=== PATIENT | male | born 1975 | race Caucasian/White ===

== ENCOUNTER 2016-10-29 17:16 | Emergency (ER) | payer OTHER ==
--- NOTE | 2016-10-29 17:52 | ED ORDER SUMMARY ---
..... Patient: FRANCISCO LUKE OrderSheet [facility] VisitID: [id number] [place] [address] 41y, M Registration Date/Time: 10/29/2016 ORDER SHEET Weight: 86.1 kg (estimated) Allergies: No Known Drug Allergy GENERAL ORDERS: POC Glucose (17:35 10/29/2016 EKoroleva P.A.-C) (17:41 LSullivan R.N.) MEDICATION ORDERS: Motrin PO 800 mg (NOW) (17:43 10/29/2016 EKoroleva P.A.-C) (17:56 LSullivan R.N.) Tylenol PO 650 mg (NOW) (17:43 10/29/2016 EKoroleva P.A.-C) (17:56 LSullivan R.N.) IV FLUIDS: ORDER SHEET NOTES: [Electronically signed by Melissa Marcelo R.N. (18:43 10/29/2016)] [Electronically signed by Maricarmen Camargo P.A.-C (19:17 10/29/2016)] [Electronically locked/signed by Melissa Marcelo R.N. (18:43 10/29/2016)]
--- NOTE | 2016-10-29 17:52 | ED CLINICAL REPORT ---
Clinical Report - Physicians/Mid Levels [facility] [address] [place] [address] 10/29/2016 17:17 [id number] Time Seen: 17:36 Oct 29 2016. Arrived- By private vehicle. Historian- patient. HISTORY OF PRESENT ILLNESS Chief Complaint: Injury to the right and left foot. The injury happened just prior to arrival. Occurred at home. This was not a twisting injury. Patient is experiencing mild pain. Patient denies injury to the head or neck. (patient reports bilateral neuropathy, ongoing for a few years, off his medications for diabetes over the last month.). REVIEW OF SYSTEMS No tingling. He has no pain on weight bearing. All systems otherwise negative, except as recorded above. PAST HISTORY Problems: Herpes Zoster. Diverticulitis. Atypical Chest Pain. Dental Pain. Immunizations. Depression. Diabetes Mellitus. Additional Surgeries: Hemicolonlectomy. Medications: No meds for a month. Allergies: No Known Drug Allergy. ADDITIONAL NOTES The nursing notes have been reviewed. PHYSICAL EXAM Vital Signs: 10/29/2016 17:26 BP: 108/76. HR: 99. RR: 18. O2 saturation: 100%. Temp: 97.6 F. Pain level now: 0/10. Appearance: Alert. No acute distress. Head: Head atraumatic. Eyes: Pupils equal, round and reactive to light. Eyes normal inspection. ENT: Nose normal. Pharynx normal. Neck: Normal inspection. Neck supple. CVS: Normal heart rate and rhythm. Respiratory: No respiratory distress. Breath sounds normal. Abdomen: No visible injury. Soft. No abdominal tenderness. Back: Normal inspection. No tenderness. No soft tissue tenderness. Skin: Skin intact. Skin warm. Skin not cool on palpation. Extremities: No foot injury. No ankle injury. Neuro, Vascular and Tendons: Decreased light touch sensation (to b/l dorsal/ plantar aspects, no erythema). No functional tendon deficit. Neuro: Oriented X 3. No motor deficit. PROGRESS AND PROCEDURES Course of Care: 17:41 10/29/16. Accucheck 144. Patient here in the ER, very stable, with no acute new symptoms. To follow up outpatient. Glucose 144. Patient is stable. Physical exam findings are improved. Symptoms better. Patient/family counseled. Disposition: Discharged. Condition: good. 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 INSTRUCTIONS Apply ice. Elevate affected areas above chest level. You may walk and bear weight as tolerated. ([address] [place] [address] < 1 mi ). OTC Medications: Take OTC medications according to label instructions. Available over the counter. Acetaminophen (available over the counter): take according to label instructions. Motrin (available over the counter): take according to label instructions. Understanding of the discharge instructions verbalized. (Electronically signed by Maricarmen Camargo P.A.-C 10/29/2016 19:17)
--- NOTE | 2016-10-29 17:52 | ED ORDER SUMMARY ---
..... Patient: FRANCISCO LUKE OrderSheet [facility] VisitID: [id number] [place] [address] 41y, M Registration Date/Time: 10/29/2016 ORDER SHEET Weight: 86.1 kg (estimated) Allergies: No Known Drug Allergy GENERAL ORDERS: POC Glucose (17:35 10/29/2016 EKoroleva P.A.-C) (17:41 LSullivan R.N.) MEDICATION ORDERS: Motrin PO 800 mg (NOW) (17:43 10/29/2016 EKoroleva P.A.-C) (17:56 LSullivan R.N.) Tylenol PO 650 mg (NOW) (17:43 10/29/2016 EKoroleva P.A.-C) (17:56 LSullivan R.N.) IV FLUIDS: ORDER SHEET NOTES: [Electronically signed by Melissa Marcelo R.N. (18:43 10/29/2016)] [Electronically signed by Maricarmen Camargo P.A.-C (19:17 10/29/2016)] [Electronically locked/signed by Melissa Marcelo R.N. (18:43 10/29/2016)]
--- NOTE | 2016-10-29 17:52 | ED NURSING NOTES ---
Clinical Report - Nurses [place] [address] [place] [address] 10/29/2016 17:17 Patient: FRANCISCO LUKE TRIAGE Triage time 17:26. Acuity: LEVEL 3. Chief Complaint: RIGHT LOWER EXTREMITY NUMBNESS. Location of symptoms- right foot. Alert. --17:31 Melissa Marcelo R.N. 17:26 10/29/16. BP: 108/76. HR: 99. RR: 18. O2 saturation: 100%. Temp: 97.6 F. Pain level now: 0/10. --17:31 Melissa Marcelo R.N. Weight: 86.1 kg estimated. Height/Length: 70 inches. BMI: 27.2. --17:28 Melissa Marcelo R.N. Medications No meds for a month. --17:27 Melissa Marcelo R.N. Allergies No Known Drug Allergy. --17:31 Melissa Marcelo R.N. History Arrived by private vehicle. Historian: patient. Unaccompanied. Primary physician (none). ( Pt is homeless temporarily). An injury may have occurred. This occurred at an unknown time. PAST MEDICAL HX: Diabetes mellitus. SOCIAL HX: Light tobacco smoker (cigarette)- less than 1/2 a pack per day. History of drug use: methamphetamines. (Pt [facility] [place] [facility] No alcohol use. --17:31 Melissa Marcelo R.N. This occurred (maybe 1 week ago). --17:32 Melissa Marcelo R.N. PROBLEMS: Herpes Zoster. Diverticulitis. Atypical Chest Pain. Dental Pain. Depression. --17:29 Melissa Marcelo R.N. ADDITIONAL SURGERIES: Hemicolonlectomy. --17:29 Melissa Marcelo R.N. Interventions ID band on patient. To room. --17:31 Melissa Marcelo R.N. PHYSICAL ASSESSMENT 17:33 10/29/16. GENERAL / NEURO / PSYCH: ( Foot very dirty, placed in hibiclens soak). --17:33 Melissa Marcelo R.N. NURSING PROGRESS NOTES 17:32 10/29/16. Patient identifiers checked. Call light placed in reach. Bed placed in lowest position. Patient ready for evaluation- chart flagged. --17:32 Melissa Marcelo R.N. 17:41 10/29/16. ( Accucheck 144. Foot soak solution changed, pt c/o it was too cold now.). --17:41 Melissa Marcelo R.N. 17:46 10/29/16. ( Pt given a turkey sandwich, cheese, water. Hibiclens soak dc'd. Towel dried.). --17:46 Melissa Marcelo R.N. 17:51 10/29/2016 Motrin PO 800 mg given. Allergies verified and confirmed 5 rights. --17:56 Melissa Marcelo R.N. 17:51 10/29/2016 Tylenol (Acetaminophen) PO 650 mg given. Confirmed 5 rights. --17:56 Melissa Marcelo R.N. DISPOSITION / DISCHARGE Departure time: 1814. Condition at departure: improved. ( Foot clean, no wounds or injuries found.). Discharge instructions provided and reviewed with the patient. Reviewed medication(s) information. Prescription(s) given to the patient. Reviewed referral to family practice for followup (and ADA). Patient verbalized understanding. ( Pt given clean socks. Old dirty ones discarded.). The patient was discharged home. --18:29 Melissa Marcelo R.N. 18:14 10/29/16. BP: 114/72. HR: 94. RR: 18. O2 saturation: 100%. Pain level now: 0/10. --18:29 Melissa Marcelo R.N. Locked/Released at 10/29/2016 18:43 by Melissa Marcelo R.N.
--- NOTE | 2016-10-29 17:52 | ED NURSING NOTES ---
Clinical Report - Nurses [place] [address] [place] [address] 10/29/2016 17:17 Patient: FRANCISCO LUKE TRIAGE Triage time 17:26. Acuity: LEVEL 3. Chief Complaint: RIGHT LOWER EXTREMITY NUMBNESS. Location of symptoms- right foot. Alert. --17:31 Melissa Marcelo R.N. 17:26 10/29/16. BP: 108/76. HR: 99. RR: 18. O2 saturation: 100%. Temp: 97.6 F. Pain level now: 0/10. --17:31 Melissa Marcelo R.N. Weight: 86.1 kg estimated. Height/Length: 70 inches. BMI: 27.2. --17:28 Melissa Marcelo R.N. Medications No meds for a month. --17:27 Melissa Marcelo R.N. Allergies No Known Drug Allergy. --17:31 Melissa Marcelo R.N. History Arrived by private vehicle. Historian: patient. Unaccompanied. Primary physician (none). ( Pt is homeless temporarily). An injury may have occurred. This occurred at an unknown time. PAST MEDICAL HX: Diabetes mellitus. SOCIAL HX: Light tobacco smoker (cigarette)- less than 1/2 a pack per day. History of drug use: methamphetamines. (Pt states [facility] [place] [facility]). No alcohol use. --17:31 Melissa Marcelo R.N. This occurred (maybe 1 week ago). --17:32 Melissa Marcelo R.N. PROBLEMS: Herpes Zoster. Diverticulitis. Atypical Chest Pain. Dental Pain. Depression. --17:29 Melissa Marcelo R.N. ADDITIONAL SURGERIES: Hemicolonlectomy. --17:29 Melissa Marcelo R.N. Interventions ID band on patient. To room. --17:31 Melissa Marcelo R.N. PHYSICAL ASSESSMENT 17:33 10/29/16. GENERAL / NEURO / PSYCH: ( Foot very dirty, placed in hibiclens soak). --17:33 Melissa Marcelo R.N. NURSING PROGRESS NOTES 17:32 10/29/16. Patient identifiers checked. Call light placed in reach. Bed placed in lowest position. Patient ready for evaluation- chart flagged. --17:32 Melissa Marcelo R.N. 17:41 10/29/16. ( Accucheck 144. Foot soak solution changed, pt c/o it was too cold now.). --17:41 Melissa Marcelo R.N. 17:46 10/29/16. ( Pt given a turkey sandwich, cheese, water. Hibiclens soak dc'd. Towel dried.). --17:46 Melissa Marcelo R.N. 17:51 10/29/2016 Motrin PO 800 mg given. Allergies verified and confirmed 5 rights. --17:56 Melissa Marcelo R.N. 17:51 10/29/2016 Tylenol (Acetaminophen) PO 650 mg given. Confirmed 5 rights. --17:56 Melissa Marcelo R.N. DISPOSITION / DISCHARGE Departure time: 1814. Condition at departure: improved. ( Foot clean, no wounds or injuries found.). Discharge instructions provided and reviewed with the patient. Reviewed medication(s) information. Prescription(s) given to the patient. Reviewed referral to family practice for followup (and ADA). Patient verbalized understanding. ( Pt given clean socks. Old dirty ones discarded.). The patient was discharged home. --18:29 Melissa Marcelo R.N. 18:14 10/29/16. BP: 114/72. HR: 94. RR: 18. O2 saturation: 100%. Pain level now: 0/10. --18:29 Melissa Marcelo R.N. Locked/Released at 10/29/2016 18:43 by Melissa Marcelo R.N.
--- NOTE | 2016-10-29 17:52 | ED CLINICAL REPORT ---
Clinical Report - Physicians/Mid Levels [facility] [address] [place] [address] 10/29/2016 17:17 [id number] Time Seen: 17:36 Oct 29 2016. Arrived- By private vehicle. Historian- patient. HISTORY OF PRESENT ILLNESS Chief Complaint: Injury to the right and left foot. The injury happened just prior to arrival. Occurred at home. This was not a twisting injury. Patient is experiencing mild pain. Patient denies injury to the head or neck. (patient reports bilateral neuropathy, ongoing for a few years, off his medications for diabetes over the last month.). REVIEW OF SYSTEMS No tingling. He has no pain on weight bearing. All systems otherwise negative, except as recorded above. PAST HISTORY Problems: Herpes Zoster. Diverticulitis. Atypical Chest Pain. Dental Pain. Immunizations. Depression. Diabetes Mellitus. Additional Surgeries: Hemicolonlectomy. Medications: No meds for a month. Allergies: No Known Drug Allergy. ADDITIONAL NOTES The nursing notes have been reviewed. PHYSICAL EXAM Vital Signs: 10/29/2016 17:26 BP: 108/76. HR: 99. RR: 18. O2 saturation: 100%. Temp: 97.6 F. Pain level now: 0/10. Appearance: Alert. No acute distress. Head: Head atraumatic. Eyes: Pupils equal, round and reactive to light. Eyes normal inspection. ENT: Nose normal. Pharynx normal. Neck: Normal inspection. Neck supple. CVS: Normal heart rate and rhythm. Respiratory: No respiratory distress. Breath sounds normal. Abdomen: No visible injury. Soft. No abdominal tenderness. Back: Normal inspection. No tenderness. No soft tissue tenderness. Skin: Skin intact. Skin warm. Skin not cool on palpation. Extremities: No foot injury. No ankle injury. Neuro, Vascular and Tendons: Decreased light touch sensation (to b/l dorsal/ plantar aspects, no erythema). No functional tendon deficit. Neuro: Oriented X 3. No motor deficit. PROGRESS AND PROCEDURES Course of Care: 17:41 10/29/16. Accucheck 144. Patient here in the ER, very stable, with no acute new symptoms. To follow up outpatient. Glucose 144. Patient is stable. Physical exam findings are improved. Symptoms better. Patient/family counseled. Disposition: Discharged. Condition: good. 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 INSTRUCTIONS Apply ice. Elevate affected areas above chest level. You may walk and bear weight as tolerated. ([address] [place] [address] < 1 mi ). OTC Medications: Take OTC medications according to label instructions. Available over the counter. Acetaminophen (available over the counter): take according to label instructions. Motrin (available over the counter): take according to label instructions. Understanding of the discharge instructions verbalized. (Electronically signed by Maricarmen Camargo P.A.-C 10/29/2016 19:17)
--- NOTE | 2016-10-29 19:18 | ED MED RECONCILIATION SUMMARY ---
Patient: FRANCISCO LUKE Medication Reconciliation Report [facility] VisitID: [id number] [place] [address] 41y, M Registration Date/Time: 10/29/2016 Weight: 86.1 kg Height/Length: 70 in. BMI: 27.2 ALLERGIES: No Known Drug Allergy The patient's Home Medications are listed below: THE FOLLOWING MEDICATIONS NEED TO BE RECONCILED: No meds for a month The source(s) of the original Home Medication information: Not obtained. The following Medications were given to the patient in the Emergency Department: Motrin [PO] PO 800 mg, administered: 10/29/2016 5:51:00 PM Tylenol [PO] PO 650 mg, administered: 10/29/2016 5:51:00 PM The following Medications were prescribed to the patient: Take OTC medications according to label instructions. Available over the counter. -- Maricarmen Camargo, P.A.-C Acetaminophen (available over the counter): take according to label instructions. -- Maricarmen Camargo, P.A.-C Motrin (available over the counter): take according to label instructions. -- Maricarmen Camargo, P.A.-C
--- NOTE | 2016-10-29 19:18 | ED MAR SUMMARY ---
..... Medication Administration Record [facility] [address] [address] Patient: FRANCISCO LUKE Visit ID: [id number] 41y, M Weight: 86.1 kg Height/Length: 70 in BMI: 27.2 ALLERGIES: No Known Drug Allergy Given 17:10/29/2016 Melissa Marcelo RStacy Medication Administered: MOTRIN [PO], Dose: 800 mg PO. Medication Ordered: Motrin PO 800 mg (NOW). Given 17:10/29/2016 Melissa Marcelo, RAdamNAdam Medication Administered: TYLENOL [PO] (ACETAMINOPHEN), Dose: 650 mg PO. Medication Ordered: Tylenol PO 650 mg (NOW).
--- NOTE | 2016-10-29 19:18 | ED MED RECONCILIATION SUMMARY ---
Patient: FRANCISCO LUKE Medication Reconciliation Report [facility] VisitID: [id number] [place] [address] 41y, M Registration Date/Time: 10/29/2016 Weight: 86.1 kg Height/Length: 70 in. BMI: 27.2 ALLERGIES: No Known Drug Allergy The patient's Home Medications are listed below: THE FOLLOWING MEDICATIONS NEED TO BE RECONCILED: No meds for a month The source(s) of the original Home Medication information: Not obtained. The following Medications were given to the patient in the Emergency Department: Motrin [PO] PO 800 mg, administered: 10/29/2016 5:51:00 PM Tylenol [PO] PO 650 mg, administered: 10/29/2016 5:51:00 PM The following Medications were prescribed to the patient: Take OTC medications according to label instructions. Available over the counter. -- Maricarmen Camargo, P.A.-C Acetaminophen (available over the counter): take according to label instructions. -- Maricarmen Camargo, P.A.-C Motrin (available over the counter): take according to label instructions. -- Maricarmen Camargo, P.A.-C
--- NOTE | 2016-10-29 19:18 | ED DISCHARGE INSTRUCTIONS ---
Patient: FRANCISCO LUKE General Instructions [facility] VisitID: [id number] [address] 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 INSTRUCTIONS Apply ice. Elevate affected areas above chest level. You may walk and bear weight as tolerated. ([address] [place] [address] < 1 mi ). OTC Medications: Take OTC medications according to label instructions. Available over the counter. Acetaminophen (available over the counter): take according to label instructions. Motrin (available over the counter): take according to label instructions. Understanding of the discharge instructions verbalized. ADDITIONAL INFORMATION Diabetes (General Information) Cells of the body need glucose (sugar) for fuel. Insulin is the hormone in the body that lets glucose move from the blood into the cells. Diabetes is a chronic health condition where the body is not able to produce enough insulin, or does not respond well to its own insulin. Because the glucose in the blood cannot get into the cells, it builds up in the blood causing high blood sugar (hyperglycemia). Your actual blood sugar level is a result of the balance between several factors. These include what kind of food you eat and how much of it you eat, how much exercise you get, and the amount of insulin present in your body. Eating too much of the wrong kinds of food or not taking diabetes medicine on time can cause high blood sugar. Infections can cause high blood sugar even if you are taking medicines correctly. Missing meals, not eating enough food, or taking too much diabetes medicine can lead to low blood sugar. Untreated over long periods of time, diabetes can cause serious problems such as heart disease, stroke, kidney failure, blindness, nerve pain or loss of feeling in the legs and feet, and gangrene of the feet. With good treatment keeping your blood sugar under control, you can prevent or delay the complications of diabetes. Normal blood sugar levels are 70-130 one to two hours before a meal and not more than 180 two hours after a meal. Home Care: Follow your prescribed diabetic diet and take insulin or oral diabetic medicine exactly as ordered. Monitor blood sugars as advised. Keep a log of your results. This will help your doctor adjust your medicines to keep your blood sugar under control. Try to achieve your ideal weight. Proper diet and exercise can reduce or eliminate the need to take diabetes medicine. Avoid tobacco smoking, which worsens the effect of diabetes on your circulation. The risk of a heart attack in a diabetic is 15 times more likely if you smoke. Pay attention to good foot care. If you have lost feeling in your feet you may not notice an injury or infection. Check your feet and between your toes at least once a week. Wear a medical alert bracelet or carry a card in your wallet explaining that you are diabetic. In the event that you become very ill and are unable to give this information, it will help medical personnel provide proper care. If you become sick with a cold, the flu, or an infection (viral or bacterial), please do the following: Review your diabetes sick plan and contact your physician as instructed. You may have been advised to call the doctor immediately if: Your blood sugar is above 240 while taking your diabetes medication Your urine ketone levels are above normal or showing high levels of ketones You have been vomiting more than 6 hours You experience difficulty to trouble breathing You develop a high fever or you have had a fever for a couple of days and you aren't getting better You become light-headed and more sleepy than usual Keep taking your oral diabetes medicine (pills) even if you have been vomiting and feeling sick. Contact your doctor immediately for advice because you may need insulin to lower your blood sugar until you recover from your illness. Keep taking your insulin, even if you have been vomiting and feeling sick. Call your doctor immediately and ask if a temporary adjustment of your insulin dose is needed based on your blood glucose (sugar) results. Check your blood sugar every 2 to 4 hours, or at least 4 times a day. Check your keytones often. If you are vomiting and having diarrhea, monitor them more frequently. Don't skip meals. Try to eat small meals on a regular schedule, even if you do not have an appetite. Drink water or other calorie-free, non-caffeinated liquids to stay hydrated. If you are nauseated or vomiting, drink small amounts (sips, a teaspoon) every 5 minutes. To prevent dehydration, try to drink a cup or 8 ounces of fluids every hour while you are awake. Always carry a source of fast-acting sugar with you in case you get symptoms of low blood sugar (below 70). At the first sign of low blood sugar, eat or drink 15 to 20 grams of fast-acting sugar to raise your blood sugar. Examples include: 3 to 4 glucose tablets (found at most drugstores) 4 ounces (1/2 cup) of regular (not diet) softdrinks 4 ounces (1/2 cup) of any fruit juice 8 ounces (1 cup) of milk 5 to 6 pieces of hard candy 1 tablespoon of honey Check your blood sugar 15 minutes after treating yourself. If it is still low (below 70), take another 15 to 20 grams of fast-acting sugar. Test again in 15 minutes. If it returns to normal (70 or above), eat a snack or meal to keep your blood sugar in a safe range. If it remains low, call your doctor or go to an emergency room. Follow Up with your doctor as advised by our staff. For more information, contact the [employer]. www.diabetes.org or 316-613-8328. Get Prompt Medical Attention if any of the following occur: HIGH BLOOD SUGAR: frequent urination, dizziness, drowsiness, thirst, headache, nausea or vomiting, abdominal pain, vision changes, fast breathing, confusion or loss of consciousness LOW BLOOD SUGAR: fatigue, headache, shakes, excess sweating, hunger, feeling anxious or restless, vision changes, drowsiness, weakness, confusion or loss of consciousness Chest pain or shortness of breath Dizziness or fainting Weakness of an arm or leg or one side of the face Trouble with speech or vision You have been given the following additional information: Diabetes, General Info You may walk and bear weight as tolerated. (Electronically signed by Maricarmen Camargo P.A.-C 10/29/2016 19:17)
--- NOTE | 2016-10-29 19:18 | ED MAR SUMMARY ---
..... Medication Administration Record [facility] [address] [place] [address] Patient: FRANCISCO LUKE Visit ID: [id number] 41y, M Weight: 86.1 kg Height/Length: 70 in BMI: 27.2 ALLERGIES: No Known Drug Allergy Given 17:10/29/2016 Melissa Marcelo RStacy Medication Administered: MOTRIN [PO], Dose: 800 mg PO. Medication Ordered: Motrin PO 800 mg (NOW). Given 17:10/29/2016 Melissa Marcelo, RAdamNAdam Medication Administered: TYLENOL [PO] (ACETAMINOPHEN), Dose: 650 mg PO. Medication Ordered: Tylenol PO 650 mg (NOW).
== END 2016-10-29 18:15 | disposition home or self-care (01) ==
LOC: ED SRH 17:16
DX: E11.42 Type 2 diabetes mellitus with diabetic polyneuropathy (principal); G89.29 Other chronic pain; X58.XXXA Exposure to other specified factors, initial encounter; Y93.9 Activity, unspecified; Y92.009 Unspecified place in unspecified non-institutional (private) residence as the place of occurrence of the external cause; Y99.9 Unspecified external cause status; F17.210 Nicotine dependence, cigarettes, uncomplicated; F15.20 Other stimulant dependence, uncomplicated
CPT/HCPCS: 90098

== ENCOUNTER 2016-11-14 01:04 | Emergency (ER) | payer OTHER ==
--- NOTE | 2016-11-14 02:50 | ED CLINICAL REPORT ---
Clinical Report - Physicians/Mid Levels [facility] [address] [place] [address] 11/14/2016 1:05 [id number] Time Seen: 01:15. Arrived- By private vehicle. Historian- patient. HISTORY OF PRESENT ILLNESS Chief Complaint: DENTAL PAIN. cough. This started yesterday and is still present. Pain described as moderate. No sore throat, mouth sores, ear pain or swollen jaw or face. No jaw pain or facial pain. He has had toothache, nasal congestion and a nasal discharge. (Pt c/o pain in his L maxillary 2nd molar. This has been long-standing, but worse since he has been feeling sick. Pt c/o body aches and chills.). Similar symptoms previously: Recent medical care: Not recently seen/assessed. REVIEW OF SYSTEMS No fever, eye discomfort, difficulty breathing, chest pain or nausea. No diarrhea, abdominal pain, difficulty with urination, headache or fainting episodes. No joint pain, skin rash, enlarged lymph nodes or vomiting. The patient has had a cough. All systems otherwise negative, except as recorded above. PAST HISTORY Problems: Lifestyle / Substance Problems. Herpes Zoster. Diverticulitis. Dental Pain. Immunizations. Depression. Diabetes Mellitus. Additional Surgeries: Hemicolonlectomy. Medications: MetFORMIN HCl Oral (pt unsure of dose ). Allergies: No Known Drug Allergy. SOCIAL HISTORY Smoker- current status unknown. 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 No alcohol use. ADDITIONAL NOTES The nursing notes have been reviewed. PHYSICAL EXAM Vital Signs: 11/14/2016 01:16 BP: 102/80. HR: 102. RR: 17. O2 saturation: 100%. Temp: 98.3 F. Pain level now: 610. Have been reviewed. Appearance: Alert. No acute distress. (Pt appears to not feel well.). Head: Normal external inspection. Eyes: Pupils equal, round and reactive to light. Conjunctivae and eyelids normal. ENT: Severe, extensive dental decay. Nose normal. Pharynx normal. Lips normal. Uvula midline. Neck: Normal inspection. Trachea midline. No adenopathy. Thyroid normal. Neck supple. CVS: Normal heart rate and rhythm. Heart sounds normal. Pulses normal. Respiratory: No respiratory distress. Breath sounds normal. Abdomen: Soft and nontender. Skin: Normal skin color. No rash. Normal skin turgor. Extremities: Extremities exhibit normal ROM. Extremities nontender. Neuro: Oriented X 3. No motor deficit. No sensory deficit. LABS, X-RAYS, AND EKG Chest X-ray: No acute disease. Normal lung markings present. Normal heart size. Mediastinum normal. Great vessels normal. Soft tissues normal. No infiltrate. No fracture. No bony lesion present. Views: PA and lateral. Technique: good. The X-rays were independently viewed by me and interpreted contemporaneously by me. Prior films were not available for comparison. Laboratory Tests: Rapid Influenza Screen: (JACKIE: 11/14/2016 02:17) ( MsgRcvd 11/14/2016 02:39) Final results SPECIMEN DESCRIPTION: SWAB Test Result Flag Units (Reference) RAPID INFLUENZA SCREEN CALLED TO: NA -- DATE: 11/14/16 INFLUENZA A: NEGATIVE SCREEN FOR INFLUENZA A INFLUENZA B: NEGATIVE SCREEN FOR INFLUENZA B . Pulse Oximetry: 11/14/2016 01:16 O2 saturation: 100%. (FIO2 - room air). Interpretation: normal. PROGRESS AND PROCEDURES Course of Care: PT was given doses of amoxicillin and hydrocodone for his dental issues and a liter of NS. He was worked up with a CXR and influenza testing, both of which were unremarkable. He has been advised of the importance of dental f/u, and has been given a dental sheet in the ED. Patient counseled in person regarding the patient's stable condition, test results, diagnosis and need for follow-up. Concerns were addressed. Old medical records reviewed. Disposition: Discharged. Condition: stable. CLINICAL IMPRESSION Dental pain. Acute viral syndrome INSTRUCTIONS Drink plenty of fluids. Warnings: Further evaluation is necessary. It is very important to follow up with a physician. SEDATIVE MEDICATION: You were given sedative medication during your visit. Do not drive or operate dangerous machinery for 6 hours. GENERAL WARNINGS: Return or contact your physician immediately if your condition worsens or changes unexpectedly, if not improving as expected, or if other problems arise. Your Current Medications: CONTINUE TAKING THE FOLLOWING MEDICATIONS: MetFORMIN HCl Oral : pt unsure of dose. Prescription Medications: Hydrocodone/APAP 5mg / 325mg: take 1-2 orally every 6 hours as needed for pain. Dispense fifteen (15). No refill. Amoxicillin 500 mg tablets: take 1 orally every 8 hours for 7 days. No refills. Follow-up: Follow up with a dentist. Call for the next available appointment. Understanding of the discharge instructions verbalized by patient. (Electronically signed by Teodora Lawrence MD 11/17/2016 21:27)
--- NOTE | 2016-11-14 02:50 | ED ORDER SUMMARY ---
..... Patient: FRANCISCO LUKE [facility]Sheet [facility] VisitID: [id number] [place] [address] 41y, M Registration Date/Time: 11/14/2016 ORDER SHEET Weight: 89.8 kg (stated) Allergies: No Known Drug Allergy GENERAL ORDERS: Chest 2V Urgent (01:48 11/14/2016 Rusty GERARDO) (Ack 1:51 CHategekimana) (2:23 RFay) Rapid Influenza Screen (Nasal Pharyngeal) (swab) Urgent (01:48 11/14/2016 Rusty GERARDO) (Ack 1:51 Johanaegekimana) (2:18 JQuivey R.N.) MEDICATION ORDERS: Amoxicillin PO 500 mg (NOW) (02:49 11/14/2016 Rusty GERARDO) (Ack 3:02 JQuivey R.N.) (3:10 JQuivey R.N.) Hydrocodone-APAP PO 5/325 mg (NOW, HIGH ALERT MEDICATION) (02:49 11/14/2016 Rusty GERARDO) (Ack 3:02 JQuivey R.N.) (3:10 JQuivey R.N.) IV FLUIDS: IV NS : initial bolus 1000 mL (1000 mL/hr), then none - (NOW) (01:48 11/14/2016 Rusty GERARDO) (Ack 2:06 JQuivey R.N.) (2:19 JQuivey R.N.) ORDER SHEET NOTES: [Electronically signed by Reggie Gracia R.N. (06:29 11/14/2016)] [Electronically signed by Teodora Lawrence MD (21:27 11/17/2016)] [Electronically locked/signed by Reggie Gracia R.N. (06:29 11/14/2016)]
--- NOTE | 2016-11-14 02:50 | ED ORDER SUMMARY ---
..... Patient: FRANCISCO LUKE OrderSheet [facility] VisitID: [id number] [place] [address] 41y, M Registration Date/Time: 11/14/2016 ORDER SHEET Weight: 89.8 kg (stated) Allergies: No Known Drug Allergy GENERAL ORDERS: Chest 2V Urgent (01:48 11/14/2016 Rusty GERRADO) (Ack 1:51 CHategekimana) (2:23 RFay) Rapid Influenza Screen (Nasal Pharyngeal) (swab) Urgent (01:48 11/14/2016 Rusty GERARDO) (Ack 1:51 Johanaegekimana) (2:18 JQuivey R.N.) MEDICATION ORDERS: Amoxicillin PO 500 mg (NOW) (02:49 11/14/2016 Rusty GERARDO) (Ack 3:02 JQuivey R.N.) (3:10 JQuivey R.N.) Hydrocodone-APAP PO 5/325 mg (NOW, HIGH ALERT MEDICATION) (02:49 11/14/2016 Rusty GERARDO) (Ack 3:02 JQuivey R.N.) (3:10 JQuivey R.N.) IV FLUIDS: IV NS : initial bolus 1000 mL (1000 mL/hr), then none - (NOW) (01:48 11/14/2016 Rusty GERARDO) (Ack 2:06 JQuivey R.N.) (2:19 JQuivey R.N.) ORDER SHEET NOTES: [Electronically signed by Reggie Gracia R.N. (06:29 11/14/2016)] [Electronically signed by Teodora Lawrence MD (21:27 11/17/2016)] [Electronically locked/signed by Reggie Gracia R.N. (06:29 11/14/2016)]
--- NOTE | 2016-11-14 02:50 | ED NURSING NOTES ---
Clinical Report - Nurses [facility] [address] [place] [address] 11/14/2016 1:05 Patient: FRANCISCO LUKE TRIAGE Triage time 01:16. Acuity: LEVEL 4. Chief Complaint: LEFT UPPER TOOTHACHE and (Cough). 01:23. Alert. SEPSIS SCREEN: Sepsis Screen. Negative (no infection suspected/documented). --01:23 Reggie Gracia R.N. 01:16 11/14/16. BP: 102/80. HR: 102. RR: 17. O2 saturation: 100%. Temp: 98.3 F (oral). Pain level now: 03/19. --01:23 Reggie Gracia R.N. Acuity: LEVEL 3. 02:20. --02:20 Reggie Gracia R.N. Weight: 89.8 kg stated. Height/Length: 70 inches Per Patient. BMI: 28.4. --01:18 Reggie Gracia R.N. Medications MetFORMIN HCl Oral (pt unsure of dose ). --01:19 Reggie Gracia R.N. Allergies No Known Drug Allergy. --01:19 Reggie Gracia R.N. Medication/allergy information source: the patient (Patient stats he is supposed to be taking insulin). --01:23 Reggie Gracia R.N. History Arrived by private vehicle. Historian: patient. Unaccompanied. Primary physician (None). Onset. (Cough today, dental pain for a week). ( Patient complaining of dental pain and a cough, states his daughters Aunt kicked him out and now he has no place to stay). He has no dental appointment scheduled. 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 PAST MEDICAL HX: Immunizations: up-to-date. SOCIAL HX: Current every day heavy tobacco smoker- 1 pack per day. 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 (Quit using 3 months ago). No alcohol use. No infectious disease exposure. ABUSE ASSESSMENT: No report of abuse. FALL RISK ASSESSMENT: Fall risk assessment completed. No fall risk identified. NUTRITIONAL RISK ASSESSMENT: The nutritional risk assessment revealed no deficiencies. FUNCTIONAL ASSESSMENT: Functional assessment: no impairments noted. LEARNING NEEDS ASSESSMENT: The learning needs assessment revealed no barriers. SKIN INTEGRITY ASSESSMENT: Skin integrity risk assessment completed. No skin integrity risk identified. --01:23 Reggie Gracia R.N. PROBLEMS: Lifestyle / Substance Problems. Herpes Zoster. Diverticulitis. Atypical Chest Pain. Dental Pain. Depression. Diabetes Mellitus. --01:20 Reggie Gracia R.N. ADDITIONAL SURGERIES: Hemicolonlectomy. --01:20 Reggie Gracia R.N. Interventions ID band on patient. To treatment room. --01:23 Reggie Gracia R.N. PHYSICAL ASSESSMENT 01:23. Ambulatory to room. GENERAL / NEURO / PSYCH: Alert. Oriented X 4. HEENT: Voice within normal limits. Extensive dental decay. Mucous membranes are pink. RESPIRATORY: Respirations not labored. SKIN: Skin is warm and dry. Normal skin turgor. --01:23 Reggie Gracia R.N. NURSING PROGRESS NOTES 01:24. Head of bed elevated. Two patient identifiers checked. Call light placed in reach. Bed placed in lowest position. Brakes of bed on. Patient ready for evaluation- chart flagged. --01:24 Reggie Gracia R.N. 01:28. Point of care testing: performed by nurse. Glucose: 249. --01:29 Reggie Gracia R.N. 02:13 11/14/2016 Site #1 started via IV in the right hand with an 20g angiocath, with aseptic technique and good blood return; one attempt. Blood drawn: rainbow set. Labeled in the presence of the patient and sent to the lab. --02:19 Reggie Gracia R.N. 02:14 11/14/2016 Started bag #1 1000 mL IV Fluids IV NS (Saline); at 1000 mL/hr over 1 hour(s) via site #1 --02:19 Reggie Gracia R.N. 02:17. Patient ID band checked for patient name and birthdate: patient confirmed. Flu swab obtained by RN via nasal pharyngeal swab. Labeled in the presence of the patient and sent to lab. --02:19 Reggie Gracia R.N. 02:18. Patient transported to radiology by stretcher with tech. --02:20 Reggie Gracia R.N. 02:26. Patient returned from radiology by stretcher with tech. --02:38 Reggie Gracia R.N. 02:38. Warming measures performed (Additional blankets provided). --02:39 Reggie Gracia R.N. 03:08 11/14/2016 Amoxicillin PO 500 mg given. Allergies verified and confirmed 5 rights. --03:10 Reggie Gracia R.N. 03:08 11/14/2016 Hydrocodone-APAP (Hydrocodone-Acetaminophen) PO 5/325 mg Tablets 1 tab given. Allergies verified, confirmed 5 rights and sedative warning given to the patient. --03:10 Reggie Gracia R.N. 03:20. The patient is calm and resting quietly. GENERAL / NEURO / PSYCH: Alert. Oriented X 4. RESPIRATORY: No respiratory distress. SKIN: Skin is warm and dry. --03:22 Reggie Gracia R.N. DISPOSITION / DISCHARGE 03:06 11/14/2016 IV Fluids IV NS Discontinued: bag #1 infused. Total amount infused: 1000 mL. IV patency established. IV site checked: no pain, redness, or swelling. IV flushed thoroughly. --03:12 Reggie Gracia R.N. 03:14 11/14/2016 Site #1 removed upon discharge. Catheter intact. Bandage applied. --03:14 Reggie Gracia R.N. Departure time: 03:22. Condition at departure: stable. No learning barriers present. Discharge instructions provided and reviewed with the patient. Reviewed medication(s) side effects, precautions, dosing and course information. Prescription(s) given to the patient. Patient verbalized understanding. Written instructions provided in Romanian. The patient was discharged home and unaccompanied at time of discharge. He left the Emergency Department ambulatory. FALL RISK ASSESSMENT: Fall risk assessment completed. No fall risk identified. --03:22 Reggie Gracia R.N. 03:10 11/14/16. BP: 100/63. HR: 97. RR: 16. O2 saturation: 98% on room air. Pain level now: 5/10. --03:22 Reggie Gracia R.N. Locked/Released at 11/14/2016 6:29 by Reggie Gracia R.N.
--- NOTE | 2016-11-14 05:51 | DIAGNOSTIC IMAGING REPORT ---
PROCEDURE: XR CHEST 2 VIEW INDICATION: COUGH TECHNIQUE: PA and lateral views. COMPARISON: None. FINDINGS: Lungs are clear. Heart and mediastinum are normal. There are mild old wedge compression deformities of some of the lower thoracic vertebral bodies with mild accentuation of the thoracic kyphosis. IMPRESSION: 1. Negative chest.
--- NOTE | 2016-11-17 21:28 | ED MAR SUMMARY ---
..... Medication Administration Record [facility] [address] [place] [address] Patient: FRANCISCO LUKE Visit ID: [id number] 41y, M Weight: 89.8 kg Height/Length: 70 in BMI: 28.4 ALLERGIES: No Known Drug Allergy Start 02:14 11/14/2016 Reggie Gracia R.N., Stop 03:06 11/14/2016 Reggie Gracia R.N. Medication Administered: IV NS (SALINE), Dose: IV Fluids over 1 hour(s), Rate: 1000 mL/hr, Dispensed: 1000 mL bag, Site: #1 right hand. Medication Ordered: IV NS : initial bolus 1000 mL (1000 mL/hr), then none - (NOW). Given 03:08 11/14/2016 Reggie Garcia R.N. Medication Administered: AMOXICILLIN [PO], Dose: 500 mg PO. Medication Ordered: Amoxicillin PO 500 mg (NOW). Given 03:08 11/14/2016 Reggie Gracia R.N. Medication Administered: HYDROCODONE-APAP [PO] (HYDROCODONE-ACETAMINOPHEN), Dose: 1 tab 5/325 mg Tablets PO. Medication Ordered: Hydrocodone-APAP PO 5/325 mg (NOW, HIGH ALERT MEDICATION).
--- NOTE | 2016-11-17 21:28 | ED DISCHARGE INSTRUCTIONS ---
Patient: FRANCISCO LUKE General Instructions [facility] VisitID: [id number] [place] [address] 41y, M Registration Date/Time: 11/14/2016 Dental pain. Acute viral syndrome INSTRUCTIONS Drink plenty of fluids. Warnings: Further evaluation is necessary. It is very important to follow up with a physician. SEDATIVE MEDICATION: You were given sedative medication during your visit. Do not drive or operate dangerous machinery for 6 hours. GENERAL WARNINGS: Return or contact your physician immediately if your condition worsens or changes unexpectedly, if not improving as expected, or if other problems arise. Your Current Medications: CONTINUE TAKING THE FOLLOWING MEDICATIONS: MetFORMIN HCl Oral : pt unsure of dose. Prescription Medications: Hydrocodone/APAP 5mg / 325mg: take 1-2 orally every 6 hours as needed for pain. Dispense fifteen (15). No refill. Amoxicillin 500 mg tablets: take 1 orally every 8 hours for 7 days. No refills. Follow-up: Follow up with a dentist. Call for the next available appointment. Understanding of the discharge instructions verbalized by patient. ADDITIONAL INFORMATION Dental Pain A crack or cavity in the tooth, which exposes the sensitive inner area of the tooth can cause tooth pain. An infection in the gum or the root of the tooth can cause pain and swelling. The pain is often made worse by drinking hot or cold fluids, or biting on hard foods. Pain may spread from the tooth to the ear or jaw on the same side. Home Care: Avoid hot and cold foods and liquids since your tooth may be sensitive to temperature changes. If your tooth is chipped or cracked, or if there is a large open cavity, apply OIL OF CLOVES (available ykuj-brj-mfqydvt in drug stores) directly to the tooth to reduce pain. Some pharmacies carry an jbnl-wqa-yhrotfr "toothache kit." This contains a paste, which can be applied over the exposed tooth to decrease sensitivity. A cold pack on your jaw over the sore area may help reduce pain. You may use acetaminophen (Tylenol) or ibuprofen (Motrin, Advil) to control pain, unless another medicine was prescribed. [ NOTE: If you have chronic liver or kidney disease or ever had a stomach ulcer or GI bleeding, talk with your doctor before using these medicines.] If you have signs of an infection, an antibiotic will be given. Take it as directed. Follow-Up as directed with a dentist. Your pain may go away with the treatment given. However, only a dentist can fully evaluate and treat the cause and prevent the pain from coming back again. TOOTHACHE IS A SIGN OF DISEASE IN YOUR TOOTH AND SHOULD BE EXAMINED AND TREATED BY A DENTIST. Get Prompt Medical Attention if any of the following occur: Your face becomes swollen or red Pain worsens or spreads to the neck Fever over 100.4 F (38.0 C) Unusual drowsiness; headache or stiff neck; weakness or fainting Pus drains from the tooth Difficulty swallowing or breathing Viral Syndrome (Adult) A viral illness may cause a number of symptoms. The symptoms depend on the part of the body that the virus affects. If it settles in the nose, throat, and lungs, it may cause cough, sore throat, congestion, and sometimes headache. If it settles in the stomach and intestinal tract, it may cause vomiting and diarrhea. Sometimes it causes vague symptoms like "aching all over," feeling tired, loss of appetite, or fever. A viral illness usually lasts1 to 2 weeks, but sometimes it lasts longer. In some cases, a more serious infection can look like a viral syndrome in the first few days of the illness. You may need anotherexam and additional teststo know the difference.Watch for the warning signs listed below. Home care Follow these guidelines for taking care of yourself at home: If symptoms are severe, rest at home for the first 2 to 3 days. Stay away from cigarette smoke - both your smoke and the smoke from others. You may useacetaminophen or ibuprofen for fever, muscle aching, and headache, unless another medicine was prescribed for this.If you have chronic liver or kidney disease or ever had a stomach ulcer or GI bleeding, talk with your doctor before using these medicinesNo one who is younger than 18 and ill with a fever should take aspirin. It may cause severe liver damage. Your appetite may be poor, so a light diet is fine. Avoid dehydration by drinking 8 to 12 8-ounce glasses of fluids each day. This may include water; orange juice; lemonade; apple, grape, and cranberry juice; clear fruit drinks; electrolyte replacement and sports drinks; and decaffeinated teas and coffee. If you have been diagnosed with a kidney disease, ask your doctor how much and what types of fluids you should drink to prevent dehydration. If you have kidney disease, drinking too much fluid can cause it build up in the your body and be dangerous to your health. Gatd-lru-sopllqm remedies won't shorten the length of the illness but may be helpful forcough, sore throat; and nasal and sinus congestion. Don't use decongestants if you have high blood pressure. Follow-up care Follow up with your health care provider if you do not improve over the next week. When to seek medical care Get prompt medical attention if any of these occur: Cough with lots of colored sputum (mucus) or blood in your sputum Chest pain, shortness of breath, wheezing, or difficulty breathing Severe headache; face, neck, or ear pain Severe, constant pain in the lower right side of your belly (abdominal) Continued vomiting (cant keep liquids down) Frequent diarrhea (more than 5 times a day); blood (red or black color) or mucus in diarrhea Feeling weak, dizzy, or like you are going to faint Extreme thirst Fever of 100.4 F (38 C) oral or higher, not better with fever medication Convulsion You have been given the following additional information: Dental Pain Viral Syndrome (Adult) (Electronically signed by Teodora Lawrence MD 11/17/2016 21:27)
--- NOTE | 2016-11-17 21:28 | ED MED RECONCILIATION SUMMARY ---
Patient: FRANCISCO LUKE Medication Reconciliation Report [facility] VisitID: [id number] [place] [address] 41y, M Registration Date/Time: 11/14/2016 Weight: 89.8 kg Height/Length: 70 in. BMI: 28.4 ALLERGIES: No Known Drug Allergy The patient's Home Medications are listed below: CONTINUE TAKING THE FOLLOWING MEDICATIONS: MetFORMIN HCl Oral, pt unsure of dose The source(s) of the original Home Medication information: patient Patient stats he is supposed to be taking insulin The following Medications were given to the patient in the Emergency Department: IV NS IV Fluids bolus 0, then 1000 mL/hr, administered: 11/14/2016 2:14:00 AM Amoxicillin [PO] PO 500 mg, administered: 11/14/2016 3:08:00 AM Hydrocodone-APAP [PO] PO 1 tab, administered: 11/14/2016 3:08:00 AM The following Medications were prescribed to the patient: Hydrocodone/APAP 5mg / 325mg: take 1-2 orally every 6 hours as needed for pain. Dispense fifteen (15). No refill. -- Teodora Lawrence MD Amoxicillin 500 mg tablets: take 1 orally every 8 hours for 7 days. No refills. -- Teodora Lawrence MD
--- NOTE | 2016-11-17 21:28 | ED MAR SUMMARY ---
..... Medication Administration Record [facility] [address] [place] [address] Patient: FRANCISCO LUKE Visit ID: [id number] 41y, M Weight: 89.8 kg Height/Length: 70 in BMI: 28.4 ALLERGIES: No Known Drug Allergy Start 02:14 11/14/2016 Reggie Gracia R.N., Stop 03:06 11/14/2016 Reggie Gracia R.N. Medication Administered: IV NS (SALINE), Dose: IV Fluids over 1 hour(s), Rate: 1000 mL/hr, Dispensed: 1000 mL bag, Site: #1 right hand. Medication Ordered: IV NS : initial bolus 1000 mL (1000 mL/hr), then none - (NOW). Given 03:08 11/14/2016 Reggie Gracia R.N. Medication Administered: AMOXICILLIN [PO], Dose: 500 mg PO. Medication Ordered: Amoxicillin PO 500 mg (NOW). Given 03:08 11/14/2016 Reggie Gracia R.N. Medication Administered: HYDROCODONE-APAP [PO] (HYDROCODONE-ACETAMINOPHEN), Dose: 1 tab 5/325 mg Tablets PO. Medication Ordered: Hydrocodone-APAP PO 5/325 mg (NOW, HIGH ALERT MEDICATION).
--- NOTE | 2016-11-17 21:28 | ED MED RECONCILIATION SUMMARY ---
Patient: FRANCISCO LUKE Medication Reconciliation Report [facility] VisitID: [id number] [place] [address] 41y, M Registration Date/Time: 11/14/2016 Weight: 89.8 kg Height/Length: 70 in. BMI: 28.4 ALLERGIES: No Known Drug Allergy The patient's Home Medications are listed below: CONTINUE TAKING THE FOLLOWING MEDICATIONS: MetFORMIN HCl Oral, pt unsure of dose The source(s) of the original Home Medication information: patient Patient stats he is supposed to be taking insulin The following Medications were given to the patient in the Emergency Department: IV NS IV Fluids bolus 0, then 1000 mL/hr, administered: 11/14/2016 2:14:00 AM Amoxicillin [PO] PO 500 mg, administered: 11/14/2016 3:08:00 AM Hydrocodone-APAP [PO] PO 1 tab, administered: 11/14/2016 3:08:00 AM The following Medications were prescribed to the patient: Hydrocodone/APAP 5mg / 325mg: take 1-2 orally every 6 hours as needed for pain. Dispense fifteen (15). No refill. -- Teodora Lawrence MD Amoxicillin 500 mg tablets: take 1 orally every 8 hours for 7 days. No refills. -- Teodora Lawrence MD
== END 2016-11-14 03:22 | disposition home or self-care (01) ==
LOC: ED SRH 01:04
DX: K08.89 Other specified disorders of teeth and supporting structures (principal); B34.9 Viral infection, unspecified; E11.9 Type 2 diabetes mellitus without complications; Z79.84 Long term (current) use of oral hypoglycemic drugs
CPT/HCPCS: 91400

== ENCOUNTER 2016-12-10 21:38 | Emergency (ER) | payer OTHER ==
--- NOTE | 2016-12-10 23:44 | ED NURSING NOTES ---
Clinical Report - Nurses [facility] [address] [place] [address] 12/10/2016 21:38 Patient: FRANCISCO LUKE TRIAGE Acuity: LEVEL 3. Chief Complaint: RIGHT LOWER EXTREMITY PAIN and REDNESS. Alert. No acute distress. SEPSIS SCREEN: Sepsis Screen. Negative (no infection suspected/documented). SARAVANAN COMA SCORE: Saravanan Coma Scale: 15- eyes open spontaneously (4); best verbal response- oriented x 4 (5); best motor response- obeys commands (6). --21:44 Alma Rhodes R.N. 21:39 12/10/16. BP: 110/69. HR: 99. RR: 20. O2 saturation: 95% on room air. Temp: 97.8 F (oral). Pain level now: 8/10. --21:44 Alma Rhodes R.N. Weight: 86.1 kg stated. Height/Length: 70 inches Per Patient. BMI: 27.2. --21:42 Alma Rhoeds R.N. Medications GlipiZIDE-MetFORMIN HCl Oral (Tablet 5-500 mg) 1 tablet, 2 x day. --21:51 Alma Rhodes R.N. The following entry was struck by Alma Rhodes R.N., 21:51 (12/10/16) Reason - other. <<STRICKEN ENTRY-- MetFORMIN HCl Oral (pt unsure of dose ). --21:40 Alma Rhodes R.N. --END STRIKE>>. Medication/allergy information source: the patient. --21:44 Alma Rhodes R.N. Allergies No Known Drug Allergy. --21:40 Alma Rhodes R.N. History Arrived by EMS. Historian: patient. This occurred (1 months ago). ( EMS reports they picked up pt at the [facility] where pt states he is staying because he is homeless.). 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 SOCIAL HX: Current every day light tobacco smoker- less than 1/2 a pack per day. 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 (PT STATES HE HAS NOT USED METH FOR 2 MONTHS). No alcohol use. FALL RISK ASSESSMENT: Fall risk assessment completed. No fall risk identified. NUTRITIONAL RISK ASSESSMENT: The nutritional risk assessment revealed no deficiencies. FUNCTIONAL ASSESSMENT: Functional assessment: no impairments noted. LEARNING NEEDS ASSESSMENT: The learning needs assessment revealed no barriers. SKIN INTEGRITY ASSESSMENT: Skin integrity risk assessment completed. No skin integrity risk identified. --21:44 Alma Rhodes R.N. PROBLEMS: Viral Disease. Lifestyle / Substance Problems. Herpes Zoster. Diverticulitis. Atypical Chest Pain. Dental Pain. Immunizations. Depression. Diabetes Mellitus. --21:41 Alma Rhodes R.N. ADDITIONAL SURGERIES: Hemicolectomy. --21:50 Alma Rhodes R.N. The following entry was struck by Alma Rhodes R.N., 21:50 Reason - other <<STRICKEN ENTRY-- Hemicolonlectomy. --19:33 Alma Rhodes R.N. --END STRIKE>>. Assessment GENERAL / NEURO / PSYCH: Alert. Oriented X 4. Appears in no acute distress. Patient appears calm and cooperative. RESPIRATORY: Respirations not labored. CVS: Capillary refill less than 2 seconds. GI / : Abdomen soft and nontender. SKIN: Mucous membranes are pink. Skin is warm and dry. --21:44 Alma Rhodes R.N. Interventions ID band on patient. To treatment room. --21:44 Alma Rhodes R.N. PHYSICAL ASSESSMENT 21:44 12/10/16. To room via stretcher. GENERAL / NEURO / PSYCH: Oriented X 4. Alert. Appears in no acute distress. EXTREMITIES: Extremity pulses are within normal limits. Neuro-vascular status intact to the extremity. SKIN: Skin intact. Skin is warm and dry. --21:44 Alma Rhodes R.N. NURSING PROGRESS NOTES 21:45 12/10/16. Patient gowned. Two patient identifiers checked. Call light placed in reach. Side rails up x 1. Bed placed in lowest position. Brakes of bed on. Patient ready for evaluation- chart flagged. --21:45 Alma Rhodes R.N. 22:24 12/10/2016 Ciprofloxacin (Ciprofloxacin) PO 500 mg given. Allergies verified and confirmed 5 rights. --22:34 Alma Rhodes R.N. 22:25 12/10/2016 Clindamycin PO 300 mg given. Allergies verified and confirmed 5 rights. --22:35 Alma Rhodes R.N. 22:30 12/10/2016 Site #1 started via IV in the left forearm with an 20g angiocath, with aseptic technique and good blood return; one attempt. Blood drawn: rainbow set. Labeled in the presence of the patient and sent to the lab. Saline lock flushed with 10 mL saline. --22:35 Alma Rhodes R.N. 22:38 12/10/2016 Bupivacaine Injection 0.5 % given. Allergies verified and confirmed 5 rights. (given to PA). --22:38 Alma Rhodes R.N. 23:00 12/10/16. Care transferred and report given (Lety, ED RN). --23:00 Alma Rhodes R.N. DISPOSITION / DISCHARGE 00:05 12/11/2016 Site #1 removed upon discharge. Bandage applied. --00:05 Kasi Grant Condition at departure: stable. Discharge instructions provided and reviewed with the patient. Reviewed medication(s). Treatments reviewed. Activity restrictions reviewed. The patient was discharged by the physician esl instructional assistant. He was discharged home. He left the Emergency Department on crutches and via bus and with fare provided. FALL RISK ASSESSMENT: Fall risk assessment completed. No fall risk identified. --00:07 Kasi Grant 00:05 12/11/16. BP: 136/74. HR: 78. RR: 18. O2 saturation: 100%. Pain level now: 11/19. --00:07 Kasi Grant Departure time: :07. --00:10 Kasi Grant Locked/Released at 12/11/2016 4:55 by Reggie Gracia R.N.
--- NOTE | 2016-12-10 23:44 | ED NURSING NOTES ---
Clinical Report - Nurses [place] [facility] [address] [place] [address] 12/10/2016 21:38 Patient: FRANCISCO LUKE TRIAGE Acuity: LEVEL 3. Chief Complaint: RIGHT LOWER EXTREMITY PAIN and REDNESS. Alert. No acute distress. SEPSIS SCREEN: Sepsis Screen. Negative (no infection suspected/documented). SARAVANAN COMA SCORE: Saravanan Coma Scale: 15- eyes open spontaneously (4); best verbal response- oriented x 4 (5); best motor response- obeys commands (6). --21:44 Alma Rhodes R.N. 21:39 12/10/16. BP: 110/69. HR: 99. RR: 20. O2 saturation: 95% on room air. Temp: 97.8 F (oral). Pain level now: 8/10. --21:44 Alma Rhodes R.N. Weight: 86.1 kg stated. Height/Length: 70 inches Per Patient. BMI: 27.2. --21:42 Alma Rhodes R.N. Medications GlipiZIDE-MetFORMIN HCl Oral (Tablet 5-500 mg) 1 tablet, 2 x day. --21:51 Alma Rhodes R.N. The following entry was struck by Alma Rhodes R.N., 21:51 (12/10/16) Reason - other. <<STRICKEN ENTRY-- MetFORMIN HCl Oral (pt unsure of dose ). --21:40 Alma Rhodes R.N. --END STRIKE>>. Medication/allergy information source: the patient. --21:44 Alma Rhodes R.N. Allergies No Known Drug Allergy. --21:40 Alma Rhodes R.N. History Arrived by EMS. Historian: patient. This occurred (1 months ago). ( EMS reports they picked up pt at the [facility] where pt states he is staying because he is homeless.). 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 SOCIAL HX: Current every day light tobacco smoker- less than 1/2 a pack per day. 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 (PT STATES HE HAS NOT USED METH FOR 2 MONTHS). No alcohol use. FALL RISK ASSESSMENT: Fall risk assessment completed. No fall risk identified. NUTRITIONAL RISK ASSESSMENT: The nutritional risk assessment revealed no deficiencies. FUNCTIONAL ASSESSMENT: Functional assessment: no impairments noted. LEARNING NEEDS ASSESSMENT: The learning needs assessment revealed no barriers. SKIN INTEGRITY ASSESSMENT: Skin integrity risk assessment completed. No skin integrity risk identified. --21:44 Alma Rhodes R.N. PROBLEMS: Viral Disease. Lifestyle / Substance Problems. Herpes Zoster. Diverticulitis. Atypical Chest Pain. Dental Pain. Immunizations. Depression. Diabetes Mellitus. --21:41 Alma Rhodes R.N. ADDITIONAL SURGERIES: Hemicolectomy. --21:50 Alma Rhodes R.N. The following entry was struck by Alma Rhodes R.N., 21:50 Reason - other <<STRICKEN ENTRY-- Hemicolonlectomy. --19:33 Alma Rhodes R.N. --END STRIKE>>. Assessment GENERAL / NEURO / PSYCH: Alert. Oriented X 4. Appears in no acute distress. Patient appears calm and cooperative. RESPIRATORY: Respirations not labored. CVS: Capillary refill less than 2 seconds. GI / : Abdomen soft and nontender. SKIN: Mucous membranes are pink. Skin is warm and dry. --21:44 Alma Rhodes R.N. Interventions ID band on patient. To treatment room. --21:44 Alma Rhodes R.N. PHYSICAL ASSESSMENT 21:44 12/10/16. To room via stretcher. GENERAL / NEURO / PSYCH: Oriented X 4. Alert. Appears in no acute distress. EXTREMITIES: Extremity pulses are within normal limits. Neuro-vascular status intact to the extremity. SKIN: Skin intact. Skin is warm and dry. --21:44 Alma Rhodes R.N. NURSING PROGRESS NOTES 21:45 12/10/16. Patient gowned. Two patient identifiers checked. Call light placed in reach. Side rails up x 1. Bed placed in lowest position. Brakes of bed on. Patient ready for evaluation- chart flagged. --21:45 Alma Rhodes R.N. 22:24 12/10/2016 Ciprofloxacin (Ciprofloxacin) PO 500 mg given. Allergies verified and confirmed 5 rights. --22:34 Alma Rhodes R.N. 22:25 12/10/2016 Clindamycin PO 300 mg given. Allergies verified and confirmed 5 rights. --22:35 Alma Rhodes R.N. 22:30 12/10/2016 Site #1 started via IV in the left forearm with an 20g angiocath, with aseptic technique and good blood return; one attempt. Blood drawn: rainbow set. Labeled in the presence of the patient and sent to the lab. Saline lock flushed with 10 mL saline. --22:35 Alma Rhodes R.N. 22:38 12/10/2016 Bupivacaine Injection 0.5 % given. Allergies verified and confirmed 5 rights. (given to PA). --22:38 Alma Rhodes R.N. 23:00 12/10/16. Care transferred and report given (Lety, ED RN). --23:00 Alma Rhodes R.N. DISPOSITION / DISCHARGE 00:05 12/11/2016 Site #1 removed upon discharge. Bandage applied. --00:05 Kasi Grant Condition at departure: stable. Discharge instructions provided and reviewed with the patient. Reviewed medication(s). Treatments reviewed. Activity restrictions reviewed. The patient was discharged by the physician technical support assistant. He was discharged home. He left the Emergency Department on crutches and via bus and with fare provided. FALL RISK ASSESSMENT: Fall risk assessment completed. No fall risk identified. --00:07 Kasi Grant 00:05 12/11/16. BP: 136/74. HR: 78. RR: 18. O2 saturation: 100%. Pain level now: 11/19. --00:07 Kasi Grant Departure time: :07. --00:10 Kasi Grant Locked/Released at 12/11/2016 4:55 by Reggie Gracia R.N.
--- NOTE | 2016-12-10 23:44 | ED ORDER SUMMARY ---
..... Patient: FRANCISCO LUKE OrderSheet [facility] VisitID: [id number] [place] [address] 41y, M Registration Date/Time: 12/10/2016 ORDER SHEET Weight: 86.1 kg (stated) Allergies: No Known Drug Allergy GENERAL ORDERS: Foot 3V Left Urgent (22:08 12/10/2016 JCoates) (Ack 22:11 AMcQuoid ER Tech1) (Cancelled: Wrong Order22:15 AMcQuoid ER Tech1) CBC w Diff Urgent (22:08 12/10/2016 JCoates) (Ack 22:11 AMcQuoid ER Tech1) (22:34 MWinterer R.N.) CMP Urgent (22:08 12/10/2016 JCoates) (Ack 22:11 AMcQuoid ER Tech1) (22:34 MWinterer R.N.) Lactate, Serum Urgent (22:08 12/10/2016 JCoates) (Ack 22:11 AMcQuoid ER Tech1) (22:34 MWinterer R.N.) Foot 3V Right Urgent (22:14 12/10/2016 AMcQuoid ER Tech1 per protocol) (Ack 22:15 AMcQuoid ER Tech1) (22:24 MCampbell) - (Please assist patient with taking his 500 mg of metformin now. Thank you.) (23:25 12/10/2016 JCoates) (23:26 TBowen R.N.) Crutches (23:41 12/10/2016 JCoates) (23:50 TBowen R.N.) MEDICATION ORDERS: Ciprofloxacin PO 500 mg (NOW) (22:08 12/10/2016 JCoates) (Ack 22:10 MWinterer R.N.) (22:34 MWinterer R.N.) Clindamycin PO 300 mg (NOW) (22:08 12/10/2016 JCoates) (Ack 22:10 MWinterer R.N.) (22:35 MWinterer R.N.) Bupivacaine Injection 0.5 % (soln) (place at bedside) (22:09 12/10/2016 JCoates) (Ack 22:10 MWinterer R.N.) (22:38 MWinterer R.N.) IV FLUIDS: IV Saline Lock (23:15 12/10/2016 Butch) (Ack 23:20 TBowen R.N.) ORDER SHEET NOTES: [Electronically signed by Reggie Gracia R.N. (04:55 12/11/2016)] [Electronically signed by Jeff Krishna (08:17 12/15/2016)] [Electronically locked/signed by Reggie Gracia R.N. (04:55 12/11/2016)]
--- NOTE | 2016-12-10 23:44 | ED CLINICAL REPORT ---
Clinical Report - Physicians/Mid Levels [facility] [address] [place] [address] 12/10/2016 21:38 [id number] Time Seen: 21:45 Mar 2016. Arrived- Walked. Historian- patient. HISTORY OF PRESENT ILLNESS Chief Complaint: Injury to right foot. The injury happened about 1 month ago. ( Patient has a history of type 2 diabetes. He says his blood sugar has been running high. About a month ago he says he was diagnosed with a foot ulcer. He was placed on antibiotics but apparently got kicked out of his roommate's apartment and is now homeless. He says he lost his antibiotics and now his foot has become more painful.). Patient is experiencing severe pain. No other injury. REVIEW OF SYSTEMS The patient sustained a laceration. No swelling, tingling, weakness, numbness or chills. No fever, cough, diarrhea or nausea. All systems otherwise negative, except as recorded above. PAST HISTORY See nurses notes. The patient has had a prior injury to the same area. SOCIAL HISTORY Smoker- current status unknown. ADDITIONAL NOTES The nursing notes have been reviewed. PHYSICAL EXAM Appearance: The patient is somnolent and appears unkempt and older than stated age. He is well hydrated and well nourished but not ill appearing or toxic appearing and has normal color. No acute distress. Head: Head atraumatic. Neck: Normal inspection. Neck supple. CVS: Normal heart rate and rhythm. Heart sounds normal. Respiratory: No respiratory distress. Breath sounds normal. Back: Normal inspection. ROM normal. Skin: Skin warm and dry. Normal skin color. Normal skin turgor. Extremities: Lower extremity tenderness, erythema and purulent drainage present. No lymphangitis. Right foot: mild erythema and tenderness located in the plantar aspect of the foot. Neurovascular intact distally. No swelling. (Patient has a small approximately 0.5 cm dorsal foot ulceration near the webspace of the #3 and #4 toes. Slight amount of purulent discharge. Very mild erythema in the area. Significant macerated tissue surrounding it. Neurovascularly intact capillary refill less than 2 seconds distally.). Extremities otherwise negative. Gait: Gait not tested due to pain. Neuro, Vascular and Tendons: Vascular status intact. Sensation intact. Motor intact. Neuro: Altered mental status. Patient slow to respond and has incoherent responses. No motor deficit. No sensory deficit. LABS, X-RAYS, AND EKG Rt Foot X-ray: No fracture. Soft tissues normal. No air in the soft tissue or foreign body. Views: AP, lateral and oblique. Technique: good. The X-rays were interpreted contemporaneously by me. Laboratory Tests: CBC w Diff: (JACKIE: 12/10/2016 22:30) ( [facility] Final results Test Result Flag Units (Reference) WHITE BLOOD COUNT 7.4 K/uL (4.5-11.5) RED BLOOD COUNT 4.47 L M/uL (4.50-5.90) HEMOGLOBIN 13.2 L gm/dL (13.5-17.5) HEMATOCRIT 40.1 L % (41.0-53.0) MEAN CELL VOLUME 90 fL (80-100) MEAN CORPUSCULAR HGB 30 pg (26-34) MEAN CORPUSCULAR HGB CONC 33 g/dL (31-37) RED CELL DISTRIBUTION WIDTH 12.9 % (11.6-14.8) PLATELET COUNT 164 K/uL (150-400) LYMPH % 36.2 % (25-40) MONO % 3.6 % (3-14) GRANULOCYTE % 60.2 Lactate, Serum: (JACKIE: 12/10/2016 22:30) ( UtgRcvd 12/10/2016 23:27) Final results Test Result Flag Units (Reference) LACTIC ACID 0.7 mmol/L (0.4-2.0) CMP: (JACKIE: 12/10/2016 22:30) ( MsgRcvd 12/10/2016 23:18) Final results Test Result Flag Units (Reference) GLUCOSE 196 H mg/dL (70-110) BUN 7 mg/dL (7-18) CREATININE 0.8 mg/dL (0.6-1.3) Estimated GFR >60 mL/min Estimated GFR- >60 mL/min Note: Persistent reduction over 3 months in eGFR<60 mL/min/1.73 m2 defines CKD. Patients with eGFR values>=60 mL/min/1.73 m2 may also have CKD if evidence ofpersistent proteinuria. Additional information may be foundat www.kidney.org. SODIUM 140 mmol/L (136-145) POTASSIUM 3.5 mmol/L (3.5-5.1) CHLORIDE 103 mmol/L (98-107) CARBON DIOXIDE 27 mmol/L (21-32) CALCIUM 8.8 mg/dL (8.5-10.1) TOTAL PROTEIN 7.4 g/dL (6.4-8.2) ALBUMIN 3.8 g/dL (3.3-5.0) BILIRUBIN, TOTAL 0.5 mg/dL (0.0-1.0) ALKALINE PHOSPHATASE 95 U/L (46-116) AST (SGOT) 15 U/L (15-37) ALT (SGPT) 22 U/L (12-78) . PROGRESS AND PROCEDURES Debridement: Ulcer. Discussed the procedure's benefits and risks. Prep done with Betadine. Debridement of skin (partial thickness) performed. Removed blisters and devitalized tissue. Using a scalpel. Antibiotic dressing applied. Course of Care: 22:09 12/10/16. Patient stable. He is sleeping in the room. He does not appear septic. Early cellulitis and he needssome basic debridement. We'll give him clindamycin and Cipro now. 23:13 12/10/16. Patient remains stable. Still waiting on lab results. Small amount of tissue debrided. Bacitracin and Vaseline gauze dressing placed. 23:45 12/10/16. Patient's lab is back. Fairly unremarkable with the exception of the hyperglycemia which should improve with his oral metformin. He is been started on ciprofloxacin and clindamycin. He needs good wound care and antibiotics and we discussed this with the patient. We'll try to find him a nursing home tonight if possible. Crutches given as well as he should be nonweightbearing on the right foot for the next week. Follow up here in 48 hours for a wound check. Doubt sepsis, osteomyelitis, gas gangrene, or DVT as a cause of his foot pain. Disposition: Discharged in good and improved condition. CLINICAL IMPRESSION Chronic, poorly controlled type 2 diabetes with hyperglycemia and foot ulcer. Cellulitis of the right foot. INSTRUCTIONS Protect wound and keep wound area clean. Change dressing twice daily. Soak in warm water twice daily. Apply bacitracin twice daily. No weight bearing left leg until better. (Failure to comply with your antibiotics and wound care could lead to worsening infection, foot or leg amputation and even . Please take all antibiotics as directed and soak the foot twice a day in warm soapy water.). Warnings: COMPLICATIONS: Complications from this condition include: infection. Future problems may include infection. INFECTION: Watch for signs of infection (increasing heat and redness, pus-like drainage, swelling, or increased pain). Return or see your doctor if these signs occur. It is important to follow up with a physician for further evaluation and treatment. GENERAL WARNINGS: Return or contact your physician immediately if your condition worsens or changes unexpectedly, if not improving as expected, or if other problems arise. Specifically return if vomiting, breathing difficulty or fever. Prescription Medications: Clindamycin 300 mg: take 1 capsule orally every 6 hours for 7 days. No refill. Cipro 500 mg: take 1 tab orally every 12 hours for 7 days. No refills. Substitution is permissible. Follow-up: Return to the emergency department in two days even if well for wound check. Follow up with your doctor in five days even if well. Reason for referral: To discuss your diabetes. Understanding of the discharge instructions verbalized by patient. (Electronically signed by Jeff Krishna, 12/15/2016 8:17)
--- NOTE | 2016-12-10 23:44 | ED ORDER SUMMARY ---
..... Patient: FRANCISCO LUKE OrderSheet [facility] VisitID: [id number] [place] [address] 41y, M Registration Date/Time: 12/10/2016 ORDER SHEET Weight: 86.1 kg (stated) Allergies: No Known Drug Allergy GENERAL ORDERS: Foot 3V Left Urgent (22:08 12/10/2016 JCoates) (Ack 22:11 AMcQuoid ER Tech1) (Cancelled: Wrong Order22:15 AMcQuoid ER Tech1) CBC w Diff Urgent (22:08 12/10/2016 JCoates) (Ack 22:11 AMcQuoid ER Tech1) (22:34 MWinterer R.N.) CMP Urgent (22:08 12/10/2016 JCoates) (Ack 22:11 AMcQuoid ER Tech1) (22:34 MWinterer R.N.) Lactate, Serum Urgent (22:08 12/10/2016 JCoates) (Ack 22:11 AMcQuoid ER Tech1) (22:34 MWinterer R.N.) Foot 3V Right Urgent (22:14 12/10/2016 AMcQuoid ER Tech1 per protocol) (Ack 22:15 AMcQuoid ER Tech1) (22:24 MCampbell) - (Please assist patient with taking his 500 mg of metformin now. Thank you.) (23:25 12/10/2016 JCoates) (23:26 TBowen R.N.) Crutches (23:41 12/10/2016 JCoates) (23:50 TBowen R.N.) MEDICATION ORDERS: Ciprofloxacin PO 500 mg (NOW) (22:08 12/10/2016 JCoates) (Ack 22:10 MWinterer R.N.) (22:34 MWinterer R.N.) Clindamycin PO 300 mg (NOW) (22:08 12/10/2016 JCoates) (Ack 22:10 MWinterer R.N.) (22:35 MWinterer R.N.) Bupivacaine Injection 0.5 % (soln) (place at bedside) (22:09 12/10/2016 JCoates) (Ack 22:10 MWinterer R.N.) (22:38 MWinterer R.N.) IV FLUIDS: IV Saline Lock (23:15 12/10/2016 Butch) (Ack 23:20 TBowen R.N.) ORDER SHEET NOTES: [Electronically signed by Reggie Gracia R.N. (04:55 12/11/2016)] [Electronically signed by Jeff Krishna (08:17 12/15/2016)] [Electronically locked/signed by Reggie Gracia R.N. (04:55 12/11/2016)]
--- NOTE | 2016-12-11 06:00 | DIAGNOSTIC IMAGING REPORT ---
PROCEDURE: XR FOOT 3 VIEWS - RIGHT INDICATION: CELLULITIS TECHNIQUE: Three views of the right foot. COMPARISON: None. FINDINGS: Normal mineralization. 1.5 cm thin-walled, well-defined cyst in the plantar calcaneus. Mild spurring at the anterior tibiotalar joint. No fractures. Normal osseous alignment. No suspicious soft-tissue calcification or radiodense foreign bodies. No subcutaneous emphysema. IMPRESSION: 1. Intact right foot. 2. No suspicious soft tissue abnormalities.
--- NOTE | 2016-12-16 02:31 | ED DISCHARGE INSTRUCTIONS ---
Patient: FRANCISCO LUKE General Instructions [facility] VisitID: [id number] [place] [address] 41y, M Registration Date/Time: 12/10/2016 Chronic, poorly controlled type 2 diabetes with hyperglycemia and foot ulcer. Cellulitis of the right foot. INSTRUCTIONS Protect wound and keep wound area clean. Change dressing twice daily. Soak in warm water twice daily. Apply bacitracin twice daily. No weight bearing left leg until better. (Failure to comply with your antibiotics and wound care could lead to worsening infection, foot or leg amputation and even . Please take all antibiotics as directed and soak the foot twice a day in warm soapy water.). Warnings: COMPLICATIONS: Complications from this condition include: infection. Future problems may include infection. INFECTION: Watch for signs of infection (increasing heat and redness, pus-like drainage, swelling, or increased pain). Return or see your doctor if these signs occur. It is important to follow up with a physician for further evaluation and treatment. GENERAL WARNINGS: Return or contact your physician immediately if your condition worsens or changes unexpectedly, if not improving as expected, or if other problems arise. Specifically return if vomiting, breathing difficulty or fever. Prescription Medications: Clindamycin 300 mg: take 1 capsule orally every 6 hours for 7 days. No refill. Cipro 500 mg: take 1 tab orally every 12 hours for 7 days. No refills. Substitution is permissible. Follow-up: Return to the emergency department in two days even if well for wound check. Follow up with your doctor in five days even if well. Reason for referral: To discuss your diabetes. Understanding of the discharge instructions verbalized by patient. ADDITIONAL INFORMATION Diabetes with High Blood Sugar You have been treated for high blood sugar (hyperglycemia). This may be becauseof an infection or other illness;eating too many sweets or starches ; not taking enough insulin. Home care High blood sugar may cause symptoms that you can learn to recognize, such as these: If you feel like your blood sugar may be too high, measure it using a blood or urine test. If it is above your usual range, use the "sliding scale"rRegular insulin dose your doctor gave you to correct this. If no "sliding scale" orders were given, contact your doctor for further advice. If your blood sugar is over 300, and you can't reach your doctor, go to the hospital emergency room. Monitor and write down your blood sugars - and insulin dose, if you take insulin - atleast twice a day. Do this before breakfast and before dinner. Do this for the next 3 to 5 days. Follow-up care Follow up with your health care provderduring the next week to review your blood sugar records. You will find out if you need to adjust your dose of insulin or other medicine for blood sugar. When to seek medical care Get prompt medical attention if either of these occur: High blood sugar.Symptoms are frequent urination, feeling dizzy, thirst, headache, nausea or vomiting, abdominal pain, and drowsiness or loss of consciousness. Low blood sugar. Symptoms are fatigue, headache, shakes, excess sweating, hunger, anxiety, reduced vision, drowsiness, weakness, confusion or loss of consciousness, and seizure. Cellulitis You have an infection of the skin known as cellulitis. This usually starts with a scrape, cut, insect bite, blister or other opening in the skin which becomes infected. This is a serious condition. It must be watched closely to be sure the infection is not spreading. With antibiotic treatment, the size of the red area will gradually shrink in size until the skin returns to normal. This will take 7-10 days. The red area should never increase in size once the antibiotic medicine has been started. Occasionally, an infection will be resistant to one antibiotic and another one will have to be used. Home Care: 1) Limit the use of the affected part, since excess movement can cause the infection to spread. 2) If the infection is on your leg, walk as little as possible during the first few days of the treatment. Keep your leg elevated while sitting. This will reduce swelling. 3) Take all of the antibiotic medicine exactly as directed until it is gone. Be careful not to miss any doses, especially during the first seven days. Follow Up with your doctor or this facility as directed. Check the infected area daily for the warning signs listed below. Get Prompt Medical Attention if any of the following occur: -- Spreading area of redness -- Increasing swelling or pain -- Appearance of pus or drainage -- Fever over 100.4 F (38.0 C) oral, or over 101.4 F (38.6 C) rectal, after two days on antibiotics Bandage Change If the bandage becomes wet or dirty, replace it. Otherwise, leave it in place for the first 24 hours. Then once a day: After removing the bandage, wash the area with soap and water. Use a wet cotton swab to loosen and remove any blood or crust that forms on the wound. After cleaning, apply a thin layer of antibiotic ointment or cream. Reapply the bandage. You may shower as usual after the first 24 hours. If the bandage is on an arm or leg, cover it with a plastic bag rubber banded at both ends before showering. No tub baths or swimming until the bandage is removed and the wound healed (at least 7 days). Clindamycin Hydrochloride Oral capsule What is this medicine? CLINDAMYCIN (JENIFER Guevara sin) is a lincosamide antibiotic. It is used to treat certain kinds of bacterial infections. It will not work for colds, flu, or other viral infections. How should I use this medicine? Take this medicine by mouth with a full glass of water. Follow the directions on the prescription label. You can take this medicine with food or on an empty stomach. If the medicine upsets your stomach, take it with food. Take your medicine at regular intervals. Do not take your medicine more often than directed. Take all of your medicine as directed even if you think your are better. Do not skip doses or stop your medicine early. Talk to your kindergarten prep teacher regarding the use of this medicine in children. Special care may be needed. What side effects may I notice from receiving this medicine? Side effects that you should report to your doctor or health dialysis patient care technician as soon as possible: allergic reactions like skin rash, itching or hives, swelling of the face, lips, or tongue dark urine pain on swallowing redness, blistering, peeling or loosening of the skin, including inside the mouth unusual bleeding or bruising unusually weak or tired yellowing of eyes or skin Side effects that usually do not require medical attention (report to your doctor or health dialysis patient care technician if they continue or are bothersome): diarrhea itching in the rectal or genital area joint pain nausea, vomiting stomach pain What may interact with this medicine? chloramphenicol erythromycin kaolin products What if I miss a dose? If you miss a dose, take it as soon as you can. If it is almost time for your next dose, take only that dose. Do not take double or extra doses. Where should I keep my medicine? Keep out of the reach of children. Store at room temperature between 20 and 25 degrees C (68 and 77 degrees F). Throw away any unused medicine after the expiration date. What should I tell my health care provider before I take this medicine? They need to know if you have any of these conditions: kidney disease liver disease stomach problems like colitis an unusual or allergic reaction to clindamycin, lincomycin, or other medicines, foods, dyes like tartrazine or preservatives or trying to get breast-feeding What should I watch for while using this medicine? Tell your doctor or healthcare professional if your symptoms do not start to get better or if they get worse. Do not treat diarrhea with over the counter products. Contact your doctor if you have diarrhea that lasts more than 2 days or if it is severe and watery. Ciprofloxacin Hydrochloride Oral tablet What is this medicine? CIPROFLOXACIN (sip ailyn FLOX a sin) is a quinolone antibiotic. It is used to treat certain kinds of bacterial infections. It will not work for colds, flu, or other viral infections. How should I use this medicine? Take this medicine by mouth with a glass of water. Follow the directions on the prescription label. Take your medicine at regular intervals. Do not take your medicine more often than directed. Take all of your medicine as directed even if you think your are better. Do not skip doses or stop your medicine early. You can take this medicine with food or on an empty stomach. It can be taken with a meal that contains dairy or calcium, but do not take it alone with a dairy product, like milk or yogurt or calcium-fortified juice. A special MedGuide will be given to you by the pharmacist with each prescription and refill. Be sure to read this information carefully each time. Talk to your kindergarten prep teacher regarding the use of this medicine in children. Special care may be needed. What side effects may I notice from receiving this medicine? Side effects that you should report to your doctor or health dialysis patient care technician as soon as possible: - allergic reactions like skin rash, itching or hives, swelling of the face, lips, or tongue - breathing problems - confusion, nightmares or hallucinations - feeling faint or lightheaded, falls - irregular heartbeat - joint, muscle or tendon pain or swelling - pain or trouble passing urine -persistent headache with or without blurred vision - redness, blistering, peeling or loosening of the skin, including inside the mouth - seizure - unusual pain, numbness, tingling, or weakness Side effects that usually do not require medical attention (report to your doctor or health dialysis patient care technician if they continue or are bothersome): - diarrhea - nausea or stomach upset - white patches or sores in the mouth What may interact with this medicine? Do not take this medicine with any of the following medications: cisapride droperidol terfenadine tizanidine This medicine may also interact with the following medications: antacids caffeine cyclosporin didanosine (ddI) buffered tablets or powder medicines for diabetes medicines for inflammation like ibuprofen, naproxen methotrexate multivitamins omeprazole phenytoin probenecid sucralfate theophylline warfarin What if I miss a dose? If you miss a dose, take it as soon as you can. If it is almost time for your next dose, take only that dose. Do not take double or extra doses. Where should I keep my medicine? Keep out of the reach of children. Store at room temperature below 30 degrees C (86 degrees F). Keep container tightly closed. Throw away any unused medicine after the expiration date. What should I tell my health care provider before I take this medicine? They need to know if you have any of these conditions: -bone problems -cerebral disease -joint problems -irregular heartbeat -kidney disease -liver disease -myasthenia gravis -seizure disorder -tendon problems -an unusual or allergic reaction to ciprofloxacin, other antibiotics or medicines, foods, dyes, or preservatives - or trying to get -breast-feeding What should I watch for while using this medicine? Tell your doctor or health dialysis patient care technician if your symptoms do not improve. Do not treat diarrhea with over the counter products. Contact your doctor if you have diarrhea that lasts more than 2 days or if it is severe and watery. You may get drowsy or dizzy. Do not drive, use machinery, or do anything that needs mental alertness until you know how this medicine affects you. Do not stand or sit up quickly, especially if you are an older patient. This reduces the risk of dizzy or fainting spells. This medicine can make you more sensitive to the sun. Keep out of the sun. If you cannot avoid being in the sun, wear protective clothing and use sunscreen. Do not use sun lamps or tanning beds/booths. Avoid antacids, aluminum, calcium, iron, magnesium, and zinc products for 6 hours before and 2 hours after taking a dose of this medicine. You have been given the following additional information: Diabetic Hyperglycemia Cellulitis Dressing Change Clindamycin Hydrochloride Oral capsule Ciprofloxacin Hydrochloride Oral tablet No weight bearing left leg until better. (Electronically signed by Jeff Krishna, 12/15/2016 8:17)
--- NOTE | 2016-12-16 02:31 | ED MAR SUMMARY ---
..... Medication Administration Record [facility] [address] [place] [address] Patient: FRANCISCO LUKE Visit ID: [id number] 41y, M Weight: 86.1 kg Height/Length: 70 in BMI: 27.2 ALLERGIES: No Known Drug Allergy Given 22:24 12/10/2016 Alma Rhodes R.N. Medication Administered: CIPROFLOXACIN [PO] (CIPROFLOXACIN), Dose: 500 mg PO. Medication Ordered: Ciprofloxacin PO 500 mg (NOW). Given 22:25 12/10/2016 Alma Rhodes R.N. Medication Administered: CLINDAMYCIN [PO], Dose: 300 mg PO. Medication Ordered: Clindamycin PO 300 mg (NOW). Given 22:38 12/10/2016 Alma Rhodes R.N. Medication Administered: BUPIVACAINE [INJECTION], Dose: 0.5 % Injection. Medication Ordered: Bupivacaine Injection 0.5 % (soln) (place at bedside).
--- NOTE | 2016-12-16 02:31 | ED MED RECONCILIATION SUMMARY ---
Patient: FRANCISCO LUKE Medication Reconciliation Report [facility] VisitID: [id number] [address] [place] [address] 41y, M Registration Date/Time: 12/10/2016 Weight: 86.1 kg Height/Length: 70 in. BMI: 27.2 ALLERGIES: No Known Drug Allergy The patient's Home Medications are listed below: THE FOLLOWING MEDICATIONS NEED TO BE RECONCILED: GlipiZIDE-MetFORMIN HCl Oral (5-500 mg) 1 tablet, 2 x day The source(s) of the original Home Medication information: patient The following Medications were given to the patient in the Emergency Department: Ciprofloxacin [PO] PO 500 mg, administered: 12/10/2016 10:24:00 PM Clindamycin [PO] PO 300 mg, administered: 12/10/2016 10:25:00 PM Bupivacaine [Injection] Injection 0.5 %, administered: 12/10/2016 10:38:00 PM The following Medications were prescribed to the patient: Clindamycin 300 mg: take 1 capsule orally every 6 hours for 7 days. No refill. -- Jeff Krishna Cipro 500 mg: take 1 tab orally every 12 hours for 7 days. No refills. Substitution is permissible. -- Jeff Krishna
--- NOTE | 2016-12-16 02:31 | ED MED RECONCILIATION SUMMARY ---
Patient: FRANCISCO LUKE Medication Reconciliation Report [facility] VisitID: [id number] [address] [place] [address] 41y, M Registration Date/Time: 12/10/2016 Weight: 86.1 kg Height/Length: 70 in. BMI: 27.2 ALLERGIES: No Known Drug Allergy The patient's Home Medications are listed below: THE FOLLOWING MEDICATIONS NEED TO BE RECONCILED: GlipiZIDE-MetFORMIN HCl Oral (5-500 mg) 1 tablet, 2 x day The source(s) of the original Home Medication information: patient The following Medications were given to the patient in the Emergency Department: Ciprofloxacin [PO] PO 500 mg, administered: 12/10/2016 10:24:00 PM Clindamycin [PO] PO 300 mg, administered: 12/10/2016 10:25:00 PM Bupivacaine [Injection] Injection 0.5 %, administered: 12/10/2016 10:38:00 PM The following Medications were prescribed to the patient: Clindamycin 300 mg: take 1 capsule orally every 6 hours for 7 days. No refill. -- Jeff Krishna Cipro 500 mg: take 1 tab orally every 12 hours for 7 days. No refills. Substitution is permissible. -- Jeff Krishna
--- NOTE | 2016-12-16 02:31 | ED MAR SUMMARY ---
..... Medication Administration Record [facility] [address] [place] [address] Patient: FRANCISCO LUKE Visit ID: [id number] 41y, M Weight: 86.1 kg Height/Length: 70 in BMI: 27.2 ALLERGIES: No Known Drug Allergy Given 22:24 12/10/2016 Alma Rhodes R.N. Medication Administered: CIPROFLOXACIN [PO] (CIPROFLOXACIN), Dose: 500 mg PO. Medication Ordered: Ciprofloxacin PO 500 mg (NOW). Given 22:25 12/10/2016 Alma Rhodes R.N. Medication Administered: CLINDAMYCIN [PO], Dose: 300 mg PO. Medication Ordered: Clindamycin PO 300 mg (NOW). Given 22:38 12/10/2016 Alma Rhodes R.N. Medication Administered: BUPIVACAINE [INJECTION], Dose: 0.5 % Injection. Medication Ordered: Bupivacaine Injection 0.5 % (soln) (place at bedside).
== END 2016-12-10 23:51 | disposition home or self-care (01) ==
LOC: ED SRH 21:38
PROC: 0HDMXZZ Extraction of Right Foot Skin, External Approach (ICD-10-PCS; principal; 2016-12-10)
DX: E11.65 Type 2 diabetes mellitus with hyperglycemia (principal); E11.621 Type 2 diabetes mellitus with foot ulcer; L97.519 Non-pressure chronic ulcer of other part of right foot with unspecified severity; L03.115 Cellulitis of right lower limb; Z79.84 Long term (current) use of oral hypoglycemic drugs